=== PATIENT | male | born 1955 | race Caucasian/White ===

== ENCOUNTER 2019-08-28 21:54 | Emergency (ER) | payer OTHER ==
[~2019-08-28] VITALS: Ht 170.2 cm; Wt 111.1 kg
[2019-08-28 22:02] VITALS: BP 173/90
--- NOTE | 2019-08-28 22:02 | NUR ---
PT TAKEN TO BED 11
--- NOTE | 2019-08-28 22:05 | NUR ---
64 YO MALE BIB FOR C/O ABD PAIN X 2 DAYS. PT STATES HE HAS BEEN HAVING N/V/D, UNABLE TO TOLERATE PO INTAKE. SKIN COOL CLAMMY DRY. ABD SOFT TENDER NON DISTENDED. ACTIVE BS X4 QUAD. LAST BM LIQUID DIAHRREA, X4 HOURS AGO. JEANNE LOCKED IN LOWEST POSITION HX: DENIES AX: ASA- RASH RX: DENIES
[2019-08-28] MEDS ORDERED: NACL 0.9% 1,000 ML IV ONE (22:25)
--- NOTE | 2019-08-28 22:37 | NUR ---
PT RETURN FROM CT
[2019-08-28 22:58] LABS: HEMATOCRIT 42.7 % (36-52); HEMOGLOBIN 14.2 g/dL (12.0-18.0); MEAN CORPUSCULAR HEMOGLOBIN 30 pg (27-31); MEAN CORPUSCULAR HGB CONC 33 g/dL (33-37); MEAN CORPUSCULAR VOLUME 91.2 fL (80-94); PLATELET COUNT (AUTO) 244 K/uL (140-450); RED BLOOD CELL COUNT(AUTO) 4.69 MIL/uL (4.20-6.10); RED CELL DISTRIBUTION WIDTH 14.6 % (11.6-13.7); WHITE BLOOD COUNT (AUTO) 8.8 K/uL (4.8-10.8)
[2019-08-28 23:08] LABS: ANION GAP 16.1 (8-16); CARBON DIOXIDE 26.8 mmol/L (21-32); CREATININE 0.8 mg/dL (0.7-1.3); POTASSIUM 3.9 mmol/L (3.5-5.1)
[2019-08-28] MEDS ORDERED: KETOROLAC 15 MG/ML VIAL IVP ONE (23:10)
--- NOTE | 2019-08-28 23:10 | NUR ---
Dr. Lucero examining patient.
[2019-08-28 23:17] LABS: ALBUMIN 3.8 g/dL (3.4-5.0); TOTAL BILIRUBIN 0.3 mg/dL (0.0-1.0)
[2019-08-28 23:18] LABS: LYMPHOCYTES % (MANUAL) 4 % (20-46); MONOCYTES % (MANUAL) 5 % (5-12)
--- NOTE | 2019-08-29 00:15 | NUR ---
Patient discharged with v/s stable. Written and verbal after care instructions given and explained. Patient alert, oriented and verbalized understanding of instructions. Ambulatory with steady gait. All questions addressed prior to discharge. ID band removed. Patient advised to follow up with PMD. Rx of ZOFRAN, ACETAMINOPHEN, AUGMENTIN given. Patient educated on indication of medication including possible reaction and side effects. Opportunity to ask questions provided and answered.
[2019-08-29 00:19] VITALS: BP 139/81
== END 2019-08-29 00:15 | disposition home or self-care (01) ==
LOC: MED 21:54
DX: K52.9 Noninfective gastroenteritis and colitis, unspecified (principal); R42 Dizziness and giddiness; Z88.6 Allergy status to analgesic agent
CPT/HCPCS: 36415; 74176; 80053; 83690; 85025; 93005; 96361; 96374; 99284; J1885; J7030